=== PATIENT | female | born 1975 | race Caucasian/White ===

== ENCOUNTER 2017-08-27 17:44 | Emergency (ER) | payer MEDICAID ==
[~2017-08-27] VITALS: Ht 165.1 cm; Wt 46.8 kg
[2017-08-27] MEDS ORDERED: ketorolac trometh inj. 60 MG/2 ML VIAL IM ONE (20:20)
[2017-08-27] MEDS ORDERED: HYDR-3965 PO (20:22)
[2017-08-27 20:49] VITALS: BP 106/61
== END 2017-08-27 20:50 | disposition home or self-care (01) ==
LOC: ER 17:49
DX: M25.551 Pain in right hip (principal); G89.29 Other chronic pain; Z98.890 Other specified postprocedural states
CPT/HCPCS: 73502; 96372; 99284; J1885

== ENCOUNTER 2017-11-10 09:44 | Emergency (ER) | payer MEDICAID ==
[~2017-11-10] VITALS: Ht 170.2 cm; Wt 45.0 kg
[2017-11-10 10:42] LABS: BASOPHILS % (AUTO) 0.3 % (0-1); EOSINOPHILS # (AUTO) 0.2 X10'3 (0-0.9); EOSINOPHILS % (AUTO) 3.1 % (0-6); HEMATOCRIT 39.4 % (35.0-45.0); HEMOGLOBIN 13.7 g/dl (12.0-16.0); LYMPHOCYTES % (AUTO) 13.1 % (21-51); MEAN CORPUSCULAR HEMOGLOBIN 30.7 PG (27.0-31.0); MEAN CORPUSCULAR HGB CONC 34.8 % (33.0-36.5); MEAN CORPUSCULAR VOLUME 88.3 FL (78-98); MEAN PLATELET VOLUME 9.2 FL (7.4-10.4); MONOCYTES # (AUTO) 0.3 X10'3 (0-0.9); NEUTROPHILS # (AUTO) 6.3 X10'3 (1.8-7.7); NEUTROPHILS % (AUTO) 79.5 % (42-75); PLATELET COUNT 185 X10'3 (140-440); RED BLOOD COUNT 4.46 X10'6 (4.20-5.60); RED CELL DISTRIBUTION WIDTH 12.9 % (11.5-14.5); WHITE BLOOD COUNT 7.9 X10'3 (4.5-11.0)
[2017-11-10 10:48] LABS: CLARITY,URINE CLEAR (Clear); COLOR,URINE YELLOW (Yellow); GLUCOSE, URINE NEGATIVE (Neg); KETONES,URINE NEGATIVE (Neg); LEUKOCYTE ESTERASE ,URINE NEGATIVE (Neg); NITRITES, URINE NEGATIVE (Neg); OCCULT BLOOD,URINE TRACE-LYSED (Neg); PROTEIN,URINE NEGATIVE (Neg)
[2017-11-10 10:49] LABS: URINE HCG NEGATIVE (NEG)
[2017-11-10 10:53] LABS: PROTHROMBIN TIME 10.4 SECONDS (9.0-12.0)
[2017-11-10 10:55] LABS: UA COLLECTION TYPE CLN CATCH MIDSTREAM
[2017-11-10 10:56] LABS: BACTERIA,URINE FEW /HPF (Neg); MUCUS STRANDS FEW /LPF (Neg); RBC,URINE 0-2 /HPF (0-2); SQUAMOUS EPITHELIAL CELL,UR MODERATE /LPF (FEW); WBC,URINE NONE SEEN /HPF (0-4)
[2017-11-10 10:59] LABS: ALANINE AMINOTRANSFERASE 22 U/L (12-78); ALBUMIN/GLOBULIN RATIO 1.2 (1.1-1.5); ALKALINE PHOSPHATASE 30 IU/L (46-116); ANION GAP 8 (8-16); ASPARTATE AMINO TRANSFERASE 12 U/L (10-37); BILIRUBIN,TOTAL 0.6 MG/DL (0.1-1.0); BLOOD UREA NITROGEN 10 MG/DL (7-18); BUN/CREATININE RATIO 14.3 (6.6-38.0); CALCIUM 8.4 MG/DL (8.5-10.1); CHLORIDE 107 MMOL/L (99-107); GLUCOSE 88 MG/DL (70-104); SODIUM 142 MMOL/L (135-145); TOTAL CARBON DIOXIDE 27.5 MMOL/L (24-32); TOTAL PROTEIN 7.4 G/DL (6.4-8.2); eGFR > 90 ML/MIN
[2017-11-10] MEDS ORDERED: TRAM50TA2 PO (11:23)
[2017-11-10 11:33] VITALS: BP 109/65
== END 2017-11-10 11:37 | disposition home or self-care (01) ==
LOC: ER 09:45
DX: R10.32 Left lower quadrant pain (principal); R11.0 Nausea; G89.29 Other chronic pain; Z79.899 Other long term (current) drug therapy
CPT/HCPCS: 36415; 80053; 81001; 81025; 85025; 85610; 99284

== ENCOUNTER 2017-11-14 16:36 | Emergency (ER) | payer MEDICAID ==
[~2017-11-14] VITALS: Ht 162.6 cm; Wt 37.6 kg
[~2017-11-14 16:36] MED LIST: TRAM50TA2 PO
[2017-11-14 16:59] VITALS: BP 129/47
[2017-11-14] MEDS ORDERED: ketorolac trometh inj. 60 MG/2 ML VIAL IM ONE (17:40)
[2017-11-18] MEDS ORDERED: IBUP-1985 PO (20:35)
[2017-11-18] MEDS ORDERED: ONDA4TAB12 PO (20:35)
[2017-11-18] MEDS ORDERED: HYDR-3965 PO (20:35)
== END 2017-11-14 18:04 | disposition home or self-care (01) ==
LOC: ER 16:36
DX: M79.622 Pain in left upper arm (principal); G89.29 Other chronic pain; Z79.899 Other long term (current) drug therapy
CPT/HCPCS: 73080; 96372; 99284; A4565; J1885

== ENCOUNTER 2019-05-27 16:10 | Emergency (ER) | payer MEDICAID ==
[~2019-05-27] VITALS: Ht 170.2 cm; Wt 45.6 kg
[~2019-05-27 16:10] MED LIST changes: +IBUP-1985 PO; +ONDA4TAB12 PO; -TRAM50TA2 PO
[2019-05-27 16:25] VITALS: BP 99/52
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
[2019-05-27] MEDS ORDERED: ketorolac tromethamine 15mg/ml inj. IM ONE (17:55)
[2019-05-27 18:40] LABS: BASOPHILS % (AUTO) 0.8 % (0-1); EOSINOPHILS # (AUTO) 0.1 X10'3 (0-0.9); EOSINOPHILS % (AUTO) 0.9 % (0-6); HEMATOCRIT 40.4 % (35.0-45.0); HEMOGLOBIN 13.8 g/dl (12.0-16.0); LYMPHOCYTES # (AUTO) 1.7 X10'3 (1.1-4.8); LYMPHOCYTES % (AUTO) 28.3 % (21-51); MEAN CORPUSCULAR HEMOGLOBIN 30.3 PG (27.0-31.0); MEAN CORPUSCULAR HGB CONC 34.1 g/dL (33.0-36.5); MEAN CORPUSCULAR VOLUME 88.9 FL (78-98); MEAN PLATELET VOLUME 9.5 FL (7.4-10.4); MONOCYTES # (AUTO) 0.3 X10'3 (0-0.9); MONOCYTES % (AUTO) 5.3 % (2-12); NEUTROPHILS % (AUTO) 64.7 % (42-75); PLATELET COUNT 198 X10'3 (140-440); RED BLOOD COUNT 4.55 X10'6 (4.20-5.60); RED CELL DISTRIBUTION WIDTH 12.9 % (11.5-14.5); WHITE BLOOD COUNT 6.1 X10'3 (4.5-11.0)
[2019-05-27 18:49] LABS: ALBUMIN 4.3 G/DL (3.4-5.0); ANION GAP 8 (8-16); BLOOD UREA NITROGEN 8 MG/DL (7-18); BUN/CREATININE RATIO 12.7 (6.6-38.0); CALCIUM 8.7 MG/DL (8.5-10.1); CHLORIDE 106 MMOL/L (99-107); CREATININE 0.63 MG/DL (0.40-0.90); GLUCOSE 92 MG/DL (70-104); POTASSIUM 3.8 MMOL/L (3.5-5.1); SODIUM 143 MMOL/L (135-145); TOTAL CARBON DIOXIDE 29.4 MMOL/L (24-32); eGFR > 90 ML/MIN
[2019-05-27] MEDS ORDERED: triamcinolone acetonide 40mg/ml inj IM ONE (19:20)
== END 2019-05-27 20:11 | disposition home or self-care (01) ==
LOC: ER 16:11
DX: M25.512 Pain in left shoulder (principal); G89.29 Other chronic pain; Z90.710 Acquired absence of both cervix and uterus; Z98.890 Other specified postprocedural states; Z98.51 Tubal ligation status
CPT/HCPCS: 36415; 73030; 80048; 85025; 85651; 96372; 99284; J1885; J3301

== ENCOUNTER 2019-10-28 07:37 | Emergency (ER) | payer MEDICAID ==
[~2019-10-28] VITALS: Ht 170.2 cm; Wt 45.7 kg
[2019-10-28 07:48] VITALS: BP 105/58
[2019-10-28] MEDS ORDERED: PENI500T2 PO (08:18)
== END 2019-10-28 08:32 | disposition home or self-care (01) ==
LOC: ER 07:37
DX: K02.9 Dental caries, unspecified (principal); K08.89 Other specified disorders of teeth and supporting structures; R20.0 Anesthesia of skin; F17.200 Nicotine dependence, unspecified, uncomplicated; Z90.710 Acquired absence of both cervix and uterus; Z98.51 Tubal ligation status; Z98.890 Other specified postprocedural states; Z79.2 Long term (current) use of antibiotics; Z79.899 Other long term (current) drug therapy
CPT/HCPCS: 99283